=== PATIENT | female | born 1995 | race Caucasian/White ===

== ENCOUNTER 2016-12-24 21:12 | Emergency (ER) | payer BC ==
[2016-12-24] MEDS ORDERED: KETOROLAC 30 MG/ML 1 ML VIAL IVP STA (22:32)
[2016-12-24] MEDS ORDERED: SODIUM CHLORIDE 0.9% 1,000 ML IV ONE (22:32)
--- NOTE | 2016-12-24 22:38 | ED ---
Abdominal Pain HPI - General Chief Complaint: Abdominal Pain Stated Complaint: Ovarian Pain Source: patient Mode of arrival: ambulatory Limitations: no limitations - History of Present Illness Initial Comments: Patient is a 21-year-old female resents for evaluation for left lower quadrant abdominal pain. Past medical history as below. Patient has a known history of recurrent ovarian cyst. States that the pain started roughly 7 days ago. Nothing makes the pain better. She is tried Motrin with no relief. Serum positions seem to make it worse. It fluctuates in intensity. The pain as a pressure-like characteristic. No history of kidney stones in the past. Father gets kidney stones though. Denies any vaginal bleeding or vaginal discharge. Denies any other associated symptoms including fever, chills, headache and changes in vision, URI symptoms, shortness breath, cough, chest pain, nausea or vomiting, diarrhea, pain or burning with urination. - Related Data Previous Rx's Medication Instructions Recorded Naproxen 500 mg PO BID #14 tablet 12/25/16 Allergies Allergy/AdvReac Type Severity Reaction Status Date / Time No Known Allergies Allergy Verified 12/24/16 22:19 Review of Systems ROS Statement: Those systems with pertinent positive or pertinent negative responses have been documented in the HPI. ROS Other: All systems not noted in ROS Statement are negative. Past Medical History Past Medical History: No Reported History History of Any Multi-Drug Resistant Organisms: None Reported Past Surgical History: No Surgical Hx Reported Past Psychological History: No Psychological Hx Reported Smoking Status: Never smoker Past Alcohol Use History: Occasional Past Drug Use History: None Reported General Exam Limitations: no limitations General appearance: alert, in no apparent distress, other (Nontoxic appearing) Head exam: Present: atraumatic, normocephalic, normal inspection Eye exam: Present: normal appearance, PERRL, EOMI. Absent: scleral icterus, conjunctival injection, periorbital swelling ENT exam: Present: normal exam, mucous membranes moist Neck exam: Present: normal inspection. Absent: tenderness, meningismus, lymphadenopathy Respiratory exam: Present: normal lung sounds bilaterally. Absent: respiratory distress, wheezes, rales, rhonchi, stridor Cardiovascular Exam: Present: regular rate, normal rhythm, normal heart sounds. Absent: systolic murmur, diastolic murmur, rubs, gallop, clicks GI/Abdominal exam: Present: soft, tenderness, normal bowel sounds, other (Point tenderness in the lower pelvic area. Soft. No peritoneal signs. Negative Feldman sign. Negative McBurney sign. No rebound tenderness.). Absent: distended, guarding, rebound, rigid Extremities exam: Present: normal inspection, full ROM, normal capillary refill. Absent: tenderness, pedal edema, joint swelling, calf tenderness Back exam: Present: normal inspection Neurological exam: Present: alert, oriented X3, CN II-XII intact Psychiatric exam: Present: normal affect, normal mood Skin exam: Present: warm, dry, intact, normal color. Absent: rash Course Vital Signs 12/24/16 12/25/16 21:32 01:05 Temperature 99.5 F 97.9 F Pulse Rate 71 69 Respiratory 18 16 Rate Blood Pressure 123/62 108/60 O2 Sat by Pulse 99 99 Oximetry Medical Decision Making - Medical Decision Making Patient is a 20-year-old female resents for evaluation for left lower pelvic pain. We'll order ultrasound of the pelvis. Basic labs. Toradol. IV fluids. 2315: Laboratory studies as below. Largely unremarkable. Not . Awaiting ultrasound findings. -Ultrasound revealed a small 1.5 cm cyst in the left ovary. No other acute process. Laboratory studies are within normal limits and her ultrasound findings aren't significant. I discussed with the patient. Reevaluated. She is in no acute distress. Vital signs are stable. Abdomen is soft and non- peritoneal. 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 We' ll discharge home with naproxen. Encouraged not to take any other NSAIDs or Motrin. We'll give a dose of morphine prior to discharge. Discussed signs and symptoms on when to return to the emergency department for further evaluation. She is comfortable with discharge home and will follow-up. - Lab Data Result diagrams: 12/24/16 22:45 12/24/16 22:45 Lab Results 12/24/16 12/24/16 12/24/16 Range/Units 22:45 22:45 22:45 WBC 11.5 H (3.8-10.6) k/uL RBC 4.74 (3.80-5.40) m/uL Hgb 13.9 (11.4-16.0) gm/dL Hct 40.8 (34.0-46.0) % MCV 86.2 (80.0-100.0) fL MCH 29.4 (25.0-35.0) pg MCHC 34.1 (31.0-37.0) g/dL RDW 13.0 (11.5-15.5) % Plt Count 310 (150-450) k/uL Neutrophils % 45 % Lymphocytes % 40 % Monocytes % 7 % Eosinophils % 4 % Basophils % 1 % Neutrophils # 5.2 (1.3-7.7) k/uL Lymphocytes # 4.6 (1.0-4.8) k/uL Monocytes # 0.8 (0-1.0) k/uL Eosinophils # 0.4 (0-0.7) k/uL Basophils # 0.1 (0-0.2) k/uL Sodium (137-145) mmol/L Potassium (3.5-5.1) mmol/L Chloride (98-107) mmol/L Carbon Dioxide (22-30) mmol/L Anion Gap mmol/L BUN (7-17) mg/dL Creatinine (0.52-1.04) mg/dL Est GFR (MDRD) Af Amer (>60 ml/min/1.73 sqM) Est GFR (MDRD) Non-Af (>60 ml/min/1.73 sqM) Glucose (74-99) mg/dL Calcium (8.4-10.2) mg/dL Total Bilirubin (0.2-1.3) mg/dL AST (14-36) U/L ALT (9-52) U/L Alkaline Phosphatase (38-126) U/L Total Protein (6.3-8.2) g/dL Albumin (3.5-5.0) g/dL Urine Color Colorless Urine Appearance Clear (Clear) Urine pH 6.5 (5.0-8.0) Ur Specific Wallace 1.003 (1.001-1.035) Urine Protein Negative (Negative) Urine Glucose (UA) Negative (Negative) Urine Ketones Negative (Negative) Urine Blood Negative (Negative) Urine Nitrite Negative (Negative) Urine Bilirubin Negative (Negative) Urine Urobilinogen <2.0 (<2.0) mg/dL Ur Leukocyte Esterase Trace H (Negative) Urine RBC <1 (0-5) /hpf Urine WBC 1 (0-5) /hpf Ur Squamous Epith Cells <1 (0-4) /hpf Urine Bacteria Moderate H (None) /hpf Urine HCG, Qual Not Detected (Not Detectd) 12/24/16 Range/Units 22:45 WBC (3.8-10.6) k/uL RBC (3.80-5.40) m/uL Hgb (11.4-16.0) gm/dL Hct (34.0-46.0) % MCV (80.0-100.0) fL MCH (25.0-35.0) pg MCHC (31.0-37.0) g/dL RDW (11.5-15.5) % Plt Count (150-450) k/uL Neutrophils % % Lymphocytes % % Monocytes % % Eosinophils % % Basophils % % Neutrophils # (1.3-7.7) k/uL Lymphocytes # (1.0-4.8) k/uL Monocytes # (0-1.0) k/uL Eosinophils # (0-0.7) k/uL Basophils # (0-0.2) k/uL Sodium 140 (137-145) mmol/L Potassium 4.2 (3.5-5.1) mmol/L Chloride 104 (98-107) mmol/L Carbon Dioxide 27 (22-30) mmol/L Anion Gap 9 mmol/L BUN 11 (7-17) mg/dL Creatinine 0.73 (0.52-1.04) mg/dL Est GFR (MDRD) Af Amer >60 (>60 ml/min/1.73 sqM) Est GFR (MDRD) Non-Af >60 (>60 ml/min/1.73 sqM) Glucose 80 (74-99) mg/dL Calcium 9.9 (8.4-10.2) mg/dL Total Bilirubin 0.3 (0.2-1.3) mg/dL AST 23 (14-36) U/L ALT 28 (9-52) U/L Alkaline Phosphatase 59 (38-126) U/L Total Protein 7.4 (6.3-8.2) g/dL Albumin 4.8 (3.5-5.0) g/dL Urine Color Urine Appearance (Clear) Urine pH (5.0-8.0) Ur Specific Wallace (1.001-1.035) Urine Protein (Negative) Urine Glucose (UA) (Negative) Urine Ketones (Negative) Urine Blood (Negative) Urine Nitrite (Negative) Urine Bilirubin (Negative) Urine Urobilinogen (<2.0) mg/dL Ur Leukocyte Esterase (Negative) Urine RBC (0-5) /hpf Urine WBC (0-5) /hpf Ur Squamous Epith Cells (0-4) /hpf Urine Bacteria (None) /hpf Urine HCG, Qual (Not Detectd) Disposition Clinical Impression: Ovarian cyst Disposition: HOME SELF-CARE Condition: Good Instructions: Ovarian Cyst (ED) Prescriptions: Naproxen 500 mg PO BID #14 tablet Referrals: Suman Clay MD [Primary Care Provider] - 1-2 days
[2016-12-24 22:59] LABS: Basophils # (A) 0.1 k/uL (0-0.2); Basophils % (A) 1 %; CH 29.1; CHCM 33.9; Eosinophils # (A) 0.4 k/uL (0-0.7); Eosinophils % (A) 4 %; HCT 40.8 % (34.0-46.0); HDW 2.47; HGB 13.9 gm/dL (11.4-16.0); Luc # (Auto) 0.44; Luc % (Auto) 4; Lymphocytes # (A) 4.6 k/uL (1.0-4.8); Lymphocytes % (A) 40 %; MCH 29.4 pg (25.0-35.0); MCHC 34.1 g/dL (31.0-37.0); MCV 86.2 fL (80.0-100.0); Mean Platelet Volume 6.9; Monocytes # (A) 0.8 k/uL (0-1.0); Monocytes % (A) 7 %; Neutrophils # (A) 5.2 k/uL (1.3-7.7); Neutrophils % (A) 45 %; RBC 4.74 m/uL (3.80-5.40); WBC 11.5 k/uL (3.8-10.6); WBC (Perox) 11.31
[2016-12-24 23:09] LABS: ALT 28 U/L (9-52); AST 23 U/L (14-36); Alkaline Phosphatase 59 U/L (38-126); Anion Gap 9 mmol/L; Appearance,Urine Clear (Clear); Bacteria,Urine Moderate /hpf; Bilirubin,Urine Negative (Negative); Blood Urea Nitrogen 11 mg/dL (7-17); Calcium 9.9 mg/dL (8.4-10.2); Carbon Dioxide 27 mmol/L (22-30); Chloride 104 mmol/L (98-107); Glucose 80 mg/dL (74-99); Glucose,Urine (UA) Negative (Negative); Ketones,Urine Negative (Negative); Leukocyte Esterase,Urine Trace (Negative); Nitrite,Urine Negative (Negative); Non-African American GFR(MDRD) >60 (>60 ml/min/1.73 sqM); PH, Urine 6.5 (5.0-8.0); Particle Count 2062; Potassium 4.2 mmol/L (3.5-5.1); Protein,Urine Negative (Negative); RBC,Urine <1 /hpf (0-5); Sodium 140 mmol/L (137-145); Specific Gravity,Urine 1.003 (1.001-1.035); Squamous Epithelial Cell,Urine <1 /hpf (0-4); Total Bilirubin 0.3 mg/dL (0.2-1.3); Total Protein 7.4 g/dL (6.3-8.2); UA Billing (MACRO vs. MICRO) MICRO; Urobilinogen,Urine <2.0 mg/dL (<2.0); WBC,Urine 1 /hpf (0-5)
--- NOTE | 2016-12-25 00:03 | US ---
EXAM: US Pelvis, Transvaginal CLINICAL HISTORY: Reason: Pain TECHNIQUE: Real-time transvaginal pelvic ultrasound (complete) with image documentation. Transvaginal imaging was used for better evaluation of the endometrium and adnexa. COMPARISON: 07/07/15 pelvic ultrasound. FINDINGS: Note, endovaginal imaging only. Uterus/cervix: Uterus measures 7.5 x 4.5 x 3.6 cm and is within normal limits. The endometrial stripe is uniform in appearance, measuring just under 9 mm. No myometrial mass. Right ovary: Right ovary measures 3.5 x 2.5 x 2.3 cm and contains small follicles. No evidence of torsion seen. Left ovary: Left ovary measures 3.6 by 3.6 x 2.7 cm, containing a simple appearing dominant 1.5 cm cyst or dominant follicle with other smaller follicles. No evidence of torsion seen. Free fluid: Trace free fluid in the cul-de-sac and right adnexa, nonspecific, although is within physiologic normal limits. Bladder: Empty bladder which cannot be evaluated with this probe. IMPRESSION: Pelvic ultrasound findings are within physiologic normal limits, as above.
[2016-12-25] MEDS ORDERED: MORPHINE SULFATE 4 MG/ML SYRINGE IVP STA (00:46)
[2016-12-25 01:09] VITALS: BP 108/60; PULSE 69; RESP 16; TEMP 97.9
== END 2016-12-25 01:05 | disposition home or self-care (01) ==
LOC: EC 21:12
DX: N83.202 Unspecified ovarian cyst, left side (principal)
CPT/HCPCS: 99284; 96374; 96375; 96361 ×2; 36415; 80053; 85025; 81001; 81025; 93975; 76830; J2270; J1885

== ENCOUNTER 2017-10-23 22:02 | Emergency (ER) | payer BC ==
[2017-10-23 22:20] VITALS: PULSE 69
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
[2017-10-23 22:59] LABS: Basophils % (A) 0 %; Eosinophils # (A) 0.5 k/uL (0-0.7); Eosinophils % (A) 5 %; HGB 13.4 gm/dL (11.4-16.0); Lymphocytes # (A) 2.8 k/uL (1.0-4.8); Lymphocytes % (A) 32 %; MCH 28.4 pg (25.0-35.0); MCHC 33.4 g/dL (31.0-37.0); MCV 85.1 fL (80.0-100.0); Monocytes # (A) 0.7 k/uL (0-1.0); Monocytes % (A) 8 %; Neutrophils # (A) 4.6 k/uL (1.3-7.7); Neutrophils % (A) 52 %; Platelet Count 277 k/uL (150-450); RDW 13.4 % (11.5-15.5); WBC 8.8 k/uL (3.8-10.6)
[2017-10-23 23:01] LABS: Appearance,Urine Cloudy (Clear); Bacteria,Urine Rare /hpf; Bilirubin,Urine Negative (Negative); Blood,Urine Negative (Negative); Color,Urine Yellow; Glucose,Urine (UA) Negative (Negative); Ketones,Urine Negative (Negative); Leukocyte Esterase,Urine Moderate (Negative); Mucus,Urine Moderate /hpf; Nitrite,Urine Negative (Negative); PH, Urine 5.5 (5.0-8.0); Protein,Urine Trace (Negative); RBC,Urine 3 /hpf (0-5); Squamous Epithelial Cell,Urine 15 /hpf (0-4); Urobilinogen,Urine <2.0 mg/dL (<2.0); WBC,Urine 10 /hpf (0-5)
[2017-10-23 23:08] LABS: ALT 29 U/L (9-52); AST 26 U/L (14-36); Albumin 4.5 g/dL (3.5-5.0); Alkaline Phosphatase 56 U/L (38-126); Anion Gap 14 mmol/L; Blood Urea Nitrogen 10 mg/dL (7-17); Calcium 9.9 mg/dL (8.4-10.2); Carbon Dioxide 27 mmol/L (22-30); Chloride 102 mmol/L (98-107); Creatine Kinase 94 U/L (30-135); Glucose 84 mg/dL (74-99); Potassium 3.9 mmol/L (3.5-5.1); Sodium 143 mmol/L (137-145); Total Bilirubin 0.3 mg/dL (0.2-1.3); Total Protein 6.9 g/dL (6.3-8.2)
[2017-10-23 23:09] LABS: Partial Thromboplastin Time 24.1 sec (22.0-30.0); Prothrombin Time 9.8 sec (9.0-12.0)
[2017-10-23 23:15] LABS: Creatine Kinase 98 U/L (30-135)
[2017-10-23 23:29] LABS: Creatine Kinase MB 0.7 ng/mL (0.0-2.4); Troponin I <0.012 ng/mL (0.000-0.034)
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
[2017-10-24 00:20] VITALS: BP 111/66; RESP 16; TEMP 97.7
== END 2017-10-24 00:10 | disposition home or self-care (01) ==
LOC: EC 22:02
DX: T75.4XXA Electrocution, initial encounter (principal); S00.83XA Contusion of other part of head, initial encounter; Z79.84 Long term (current) use of oral hypoglycemic drugs; W01.198A Fall on same level from slipping, tripping and stumbling with subsequent striking against other object, initial encounter; Y92.002 Bathroom of unspecified non-institutional (private) residence as the place of occurrence of the external cause; Y93.E1 Activity, personal bathing and showering
CPT/HCPCS: 36415; 70450; 80053; 81001; 82550; 82553; 84484; 85025; 85610; 85730; 93005; 99284

== ENCOUNTER 2018-08-27 15:53 | Outpatient (CLI) | payer BC ==
[2018-08-27 17:12] VITALS: BP 135/74; PULSE 77; RESP 14; TEMP 98.1
--- NOTE | 2018-09-03 08:08 | P.MSEPDOC ---
Presenting Problems - Arrival Data Date of Arrival on Unit: 08/27/18 Time of Arrival on Unit: 15:52 Mode of Transport: Ambulatory - Complaint OB-Reason for Admission/Chief Complaint: Rule Out SROM Comment: pt reports fluid at 1430 this afternoon Medical History - Information : 1 Para: 0 Term: 0 : 0 Abortions: Spontaneous or Elective: 0 Number of Living Children: 0 - Gestational Age Gestational Age by GUNNAR (wks/days): -65 Weeks and -4 Days Review of Systems - Review of Systems Constitutional: No problems Breast: No problems ENT: No problems Cardiovascular: No problems Respiratory: No problems Gastrointestinal: No problems Genitourinary: No problems Musculoskeletal: No problems Neurological: No problems Skin: No problems Vital Signs - Temperature Temperature: 98.1 F Temperature Source: Oral - Pulse Right Brachial Pulse Rate: 77 Pulse Assessment Method: Automatic Cuff - Respirations Respiratory Rate: 14 Oxygen Delivery Method: Room Air - Blood Pressure Right Arm Blood Pressure: 135/74 Blood Pressure Mean: 94 Blood Pressure Source: Automatic Cuff Medical Screen Scoring (Pre) - Cervical Exam Dilation: 1-3 cm = 1 - Uterine Contractions Frequency: > 5 minutes apart = 1 Duration: > 40 seconds = 2 Intensity: N/A - Maternal Vital Signs Maternal Temperature: N/A Maternal Blood Pressure: N/A Signs of Preeclampsia: N/A Maternal Respirations: N/A - Pain Assessment Pain Location and Character: Pelvic Pain Scale Used: Numeric (1 - 10) Pain Intensity: 5 Pain Management Goal: 6 Pain Frequency: Frequent Pain Duration Units: Minutes Pain Behavior: None Exhibited Pain Aggravating Factors: Contractions - Assessment Baseline FHR: 125 Heart Rate - NICHD Category: Category I (Normal) = 0 NST: Reactive Position: N/A - Total Score Total Score (Pre): 4 - Level of Risk Level of Risk: Low (0-5) Physician Notification (Pre) - Physician Notified Physician Notified Date: 08/27/18 Physician Notified Time: 16:35 Physician/Practitioner Notifed:: corbin Spoke With: corbin New Order Received: Yes - Notification Comment Comment: reported to dr alaniz pt visit to triage with concern of rom. reported amnisure negative, reactive nst, irregular contractions, vag exam of 3.5/70. orders to discharge pt home with follow up at scheduled appointment next week Disposition - Disposition OB Disposition: Physician follow up in office, Discharge to home Discharge Date: 08/27/18 Discharge Time: 16:35 I agree with the RN Medical Screening Exam: No Physician's MSE Comment: Pt is 39 1/7 weeks gestation Risk & Benefit of care provided described in d/c instruction: Yes Diagnosis: FALSE LABOR AT OR AFTER 37 COMPLETED WEEKS OF GESTATION
== END 2018-08-27 16:35 | disposition home or self-care (01) ==
LOC: FBPOP 15:53
PROVIDERS: ATTEND Obstetrics & Gynecology
DX: O47.1 False labor at or after 37 completed weeks of gestation (principal); Z3A.39 39 weeks gestation of pregnancy
CPT/HCPCS: 59025; 99213

== ENCOUNTER → 2020-07-29 | Outpatient (CLI) | payer BC | END | disposition home or self-care (01) | LOC: LABWHC1 09:06 | PROVIDERS: ATTEND Obstetrics & Gynecology | DX: N92.5 Other specified irregular menstruation (principal) | CPT/HCPCS: 36415; 84702 ==

== ENCOUNTER 2021-03-13 09:10 | Outpatient (CLI) | payer BC ==
[2021-03-13] MEDS ORDERED: BETAMET ACET-BETAMETH SOD PHOS 6 MG/ML MDV IM SCH (09:45)
[2021-03-13 10:05] VITALS: BP 134/81; PULSE 95; RESP 18; TEMP 98.4
== END 2021-03-13 09:55 | disposition home or self-care (01) ==
LOC: FBPOP 09:10
PROVIDERS: ATTEND Obstetrics & Gynecology
DX: O36.8330 Maternal care for abnormalities of the fetal heart rate or rhythm, third trimester, not applicable or unspecified (principal); O30.93 Multiple gestation, unspecified, third trimester; Z3A.35 35 weeks gestation of pregnancy
CPT/HCPCS: 59025; 96372; J0702; 99214

== ENCOUNTER 2021-03-14 08:20 | Outpatient (CLI) | payer BC ==
[2021-03-14] MEDS ORDERED: BETAMET ACET-BETAMETH SOD PHOS 6 MG/ML MDV IM SCH (09:00)
== END 2021-03-14 08:40 ==
LOC: FBPOP 08:20
PROVIDERS: ATTEND Obstetrics & Gynecology
DX: O26.893 Other specified pregnancy related conditions, third trimester (principal); Z3A.35 35 weeks gestation of pregnancy

== ENCOUNTER 2021-03-15 10:42 | Inpatient (IN) | payer BC ==
[2021-03-15] MEDS ORDERED: LACTATED RINGERS 1,000 ML IV ONE (11:07)
[2021-03-15] MEDS ORDERED: CITRIC ACID-SODIUM CITRATE 15 ML CUP PO ONE (11:07)
[2021-03-15 11:17] LABS: Basophils % (A) 0 %; Eosinophils % (A) 0 %; HCT 34.3 % (34.0-46.0); HGB 11.2 gm/dL (11.4-16.0); Lymphocytes # (A) 2.2 k/uL (1.0-4.8); Lymphocytes % (A) 15 %; MCH 28.4 pg (25.0-35.0); MCHC 32.7 g/dL (31.0-37.0); MCV 87.1 fL (80.0-100.0); Mean Platelet Volume 8.9; Monocytes # (A) 0.9 k/uL (0-1.0); Monocytes % (A) 6 %; Neutrophils # (A) 11.2 k/uL (1.3-7.7); Neutrophils % (A) 75 %; Platelet Count 261 k/uL (150-450); RBC 3.94 m/uL (3.80-5.40); RDW 13.4 % (11.5-15.5); WBC 14.8 k/uL (3.8-10.6)
--- NOTE | 2021-03-15 12:32 | P.HPOB ---
History of Present Illness H&P Date: 03/15/21 This is a 25-year-old white female 2 para 1001 EDC 04/12/2021 at 36 weeks' gestation who presents with a known monochorionic, diamniotic twin gestation. Maternal medicine recommendation has been for delivery between 36 and 37 weeks. testing has been reassuring, however in the office today baseline on baby A was 108, with accelerations. Baseline baby B 1 teens, with accelerations. Normal amniotic fluid index. Antibiotics have been received. Decision is therefore this morning to proceed with the section. Patient declines the option of vaginal although she has had a vaginal in the past. Fetuses are both active. Past medical history is significant for PCO OS. Past surgical history wisdom teeth extracted in the past. ALLERGIES none known. Current medications vitamin daily, baby aspirin daily, metformin 500 mg twice daily. Family history significant for pancreatic cancer, hypertension. Social history patient is , her and is present. She denies alcohol tobacco or drug use. No fainting. history significant for blood type A positive, rubella status immune. VDRL testing, hepatitis B surface antigen, HIV testing, group B strep cultures all negative. One-hour Glucola 119. Gonorrhea and chlamydia cultures negative. On exam patient is 5 foot 3 inches, 200 pounds, blood pressure 129/83. The general physical exam is within normal limits. Chest is clear in all smith. Extremities reveal trace edema. Fundus is gravid, fundal height 44 cm. heart rates are both reactive, baseline in the 1 teens for both twins. Impression: 36 week monochorionic diamniotic twins, steroids received, b radycardia on both twins as a baseline, patient declining vaginal option. Patient had a half banana and several sips of chocolate milk at 9 AM. Plan: We will await 6 hours of nothing by mouth status, then proceed with low transverse section. Antibiotic prophylaxis. All risks benefits and alternatives discussed with patient. All questions answered. Commissioning Editor in- house and aware. Review of Systems as per HPI Constitutional: Reports as per HPI Respiratory: Reports as per HPI Past Medical History Past Medical History: No Reported History Additional Past Medical History / Comment(s): PCOS History of Any Multi-Drug Resistant Organisms: None Reported Past Surgical History: No Surgical Hx Reported Past Anesthesia/Blood Transfusion Reactions: No Reported Reaction Past Psychological History: No Psychological Hx Reported Smoking Status: Never smoker Past Alcohol Use History: Occasional Past Drug Use History: None Reported - Past Family History Father Family Medical History: Cancer Medications and Allergies Home Medications Medication Instructions Recorded Confirmed Type metFORMIN HCL [Glucophage] 500 mg PO BID 10/23/17 03/15/21 History Aspirin 81 mg PO DAILY 03/13/21 03/15/21 History Pnv,Calcium 72/Iron/Folic Acid 1 each PO DAILY 03/13/21 03/15/21 History [ Plus Tablet] Allergies Allergy/AdvReac Type Severity Reaction Status Date / Time No Known Allergies Allergy Verified 03/15/21 10:58 Exam Vital Signs Temp Pulse Resp BP Pulse Ox 03/15/21 10:59 97.9 F 90 16 129/83 97 Intake and Output 03/14/21 03/15/21 03/15/21 22:59 06:59 14:59 Other: Weight 90.718 kg as per HPI Results Result Diagrams: 03/15/21 11:00 Abnormal Lab Results - Last 24 Hours (Table) 03/15/21 Range/Units 11:00 WBC 14.8 H (3.8-10.6) k/uL Hgb 11.2 L (11.4-16.0) gm/dL Neutrophils # 11.2 H (1.3-7.7) k/uL Assessment and Plan Assessment: 36 wks monochorionic, diamniotic twins with bradycardic baseline on both twins, normal SPRING and R-NSTx2, steroids received. Because recommendation from maternal- medicine is delivered between 36 and 37 weeks, we will proceed with section this afternoon. Plan: 086 hours of nothing by mouth status per anesthesia recommendations, then section. All risks benefits and alternatives reviewed in detail. All questions answered. Time with Patient: Less than 30
[2021-03-15] MEDS ORDERED: OXYTOCIN 30 UNITS/500 ML NS BAG IV ONE (16:01)
[2021-03-15] MEDS ORDERED: KETOROLAC 15 MG/ML 1 ML VIAL ONE (16:01)
[2021-03-15] MEDS ORDERED: ONDANSETRON 4 MG/2 ML VIAL ONE (16:01)
[2021-03-15] MEDS ORDERED: MORPHINE SULFATE (PF) 0.3 MG/0.3 ML SYR ONE (16:01)
[2021-03-15] MEDS: LACTATED RINGERS 1,000 ML IV SCH ×3 (16:54→21:04)
[2021-03-15] MEDS ORDERED: diphenhydrAMINE 50 MG/ML 1 ML VIAL IVP PRN ×2 (17:00)
[2021-03-15] MEDS ORDERED: diphenhydrAMINE 50 MG CAP PO PRN (17:00)
[2021-03-15] MEDS ORDERED: diphenhydrAMINE 25 MG CAP PO PRN (17:00)
[2021-03-15] MEDS ORDERED: NALOXONE 0.4 MG/ML 1 ML VIAL IV PRN ×2 (17:00→17:19)
[2021-03-15] MEDS ORDERED: METOCLOPRAMIDE 5 MG/ML 2 ML VIAL IVP PRN (17:00)
[2021-03-15] MEDS ORDERED: ZOLPIDEM 5 MG TAB PO PRN (17:00)
[2021-03-15] MEDS ORDERED: ONDANSETRON 4 MG/2 ML VIAL IVP PRN (17:00)
--- NOTE | 2021-03-15 17:00 | P.OP ---
Date of Procedure: 03/15/21 Preoperative Diagnosis: Monochorionic, diamniotic twins at 36 weeks gestation. bradycardia baby B Postoperative Diagnosis: Same, liveborn female twins. Procedure(s) Performed: Primary low transverse section Anesthesia: spinal Surgeon: Greta Kenney [facility]: Nuha Silver Estimated Blood Loss (ml): 400 IV fluids (ml): 1,000 Urine output (ml): 200 Pathology: other (Placenta) Condition: stable Disposition: PACU Operative Findings: Baby A 5 lbs. 12 oz., 2600 g, scores 6, 8, 9 at one and 5 and 10 minutes. Baby B 5 lbs. 4 oz., 2380 g, scores 7, 9, 10 at one and 5 and 10 minutes Description of Procedure: Patient is brought to the operating suite where a spinal with Duramorph is administered without difficulty. She's placed in the dorsal supine position with left lateral uterine displacement. The appropriate timeout is performed to assure proper patient and procedural identification. Antibiotics are given. Bicitra given. Stevenson to direct drainage. The abdomen is prepped and draped in the usual sterile fashion. Analgesia is checked and noted to be working well. A low transverse skin incision is made in this is carried down through the subcutaneous tissue to the fascia. The fascia is isolated, scored, extended bilaterally with curved Maddox scissors. Peritoneum is next identified and incised, there is no bowel or bladder involvement. Bladder blade is placed over the dome of the bladder and at all times the bladder is Well from the operative field to avoid bladder and/or ureteral injury. A low transverse uterine incision is made in this is carried down through the myometrium. Artificial amniorrhexis of "A" reveals clear fluid. Baby A is delivered in the occiput posterior position. The umbilical cord is doubly clamped and ligated, she is handed to waiting nurses for evaluation as well as our shipping packer, where scores of 68 and 9 at one and 5 and 10 minutes respectively are given. The umbilical cord is marked. Artificial amniorrhexis of baby B reveals clear fluid. Infant is delivered in the vertex presentation. Umbilical cord is doubly clamped and ligated, she is handed to waiting shipping packer for evaluation where scores of 7 and 9 and 10 at one and 5 and 10 minutes respectively are given. Placentas are delivered spontaneously, sent to pathology for evaluation. The uterus is then massaged. It is swept clean with a sterile sponge to avoid any retained products of conception. Ovaries and tubes appear normal. The uterus is closed in a two-step fashion, first layer running locking with 0 Vicryl, second layer imbricated the same. Excellent hemostasis and reapproximation is noted. Bilateral gutters are inspected and cleaned. Uterus is suctioned posteriorly. Again incision is inspected of the uterus and noted to be clean and dry. Peritoneum was allowed to close by secondary intention. Fascia is closed in a running stitch of 0 Vicryl with over ligation in the midline. Subcutaneous tissue is irrigated, clean and dry. It is reapproximated with 3-0 Vicryl in a running stitch. 4-0 Vicryl issues for final skin closure in a subcuticular manner. Steri-Strips and Mastisol are applied to the wound. Uterus is massaged, small amount of lochia is obtained. Total estimated blood loss 400 mL's. All sponge needle and enhancement counts are correct. Stevenson is noted to be draining clear urine. Patient is brought back to the recovery room in excellent condition with a blood pressure 118/54, pulse 65, 100% O2 saturation. As noted, baby A weighs 5 lbs. 12 oz. or 2600 g, baby B weighs 5 lbs. 4 oz. or 2380 g.
[2021-03-15] MEDS ORDERED: MORPHINE SULFATE 2 MG/ML SYRINGE IVP PRN (17:19)
[2021-03-15] MEDS: ACETAMINOPHEN TAB 500 MG TAB PO SCH (18:41)
[2021-03-15] MEDS: SENNOSIDES-DOCUSATE SODIUM 1 EACH TAB PO SCH (21:04)
[2021-03-15] MEDS: KETOROLAC 15 MG/ML 1 ML VIAL IVP SCH (22:20)
[2021-03-15] MEDS ORDERED: KETOROLAC 15 MG/ML 1 ML VIAL IM SCH (22:30)
[2021-03-16] MEDS: LACTATED RINGERS 1,000 ML IV SCH ×2 (00:19→19:43)
[2021-03-16] MEDS: ACETAMINOPHEN TAB 500 MG TAB PO SCH ×4 (00:34→23:03)
[2021-03-16] MEDS: IBUPROFEN 600 MG TAB PO SCH ×5 (01:04→19:48)
[2021-03-16] MEDS: KETOROLAC 15 MG/ML 1 ML VIAL IVP SCH ×4 (01:04→18:48)
[2021-03-16 06:24] LABS: Basophils % (A) 0 %; Eosinophils # (A) 0.1 k/uL (0-0.7); Eosinophils % (A) 0 %; HCT 32.1 % (34.0-46.0); HGB 10.6 gm/dL (11.4-16.0); Lymphocytes # (A) 2.2 k/uL (1.0-4.8); Lymphocytes % (A) 13 %; MCH 29.4 pg (25.0-35.0); MCV 89.2 fL (80.0-100.0); Mean Platelet Volume 8.7; Monocytes # (A) 1.4 k/uL (0-1.0); Monocytes % (A) 8 %; Neutrophils # (A) 13.5 k/uL (1.3-7.7); Neutrophils % (A) 77 %; Platelet Count 245 k/uL (150-450); RBC 3.59 m/uL (3.80-5.40); RDW 13.4 % (11.5-15.5); WBC 17.7 k/uL (3.8-10.6)
[2021-03-16] MEDS: SENNOSIDES-DOCUSATE SODIUM 1 EACH TAB PO SCH ×2 (07:34→19:52)
--- NOTE | 2021-03-16 07:57 | P.PN ---
Subjective Progress Note Date: 03/16/21 Principal diagnosis: Doing well first postoperative day Slept well. Minimal pain. No complaints. Objective - Vital Signs Vital signs: Vital Signs Temp 97.7 F 03/16/21 07:38 Pulse 60 03/16/21 07:38 Resp 17 03/16/21 07:38 BP 102/58 03/16/21 07:38 Pulse Ox 100 03/16/21 07:38 Intake & Output 03/15/21 03/16/21 03/16/21 18:59 06:59 18:59 Output Total 900 350 Balance -900 -350 Weight 90.718 kg Output: Urine 500 350 Uretheral (Stevenson) 200 Estimated Blood Loss 400 Other: Voiding Method Indwelling Catheter Indwelling Catheter - Constitutional General appearance: Present: average body habitus, cooperative - EENT Eyes: Present: PERRLA ENT: Present: hearing grossly normal - Neck Neck: Present: normal ROM - Respiratory Respiratory: bilateral: CTA - Cardiovascular Rhythm: regular - Gastrointestinal General gastrointestinal: Present: normal bowel sounds - Integumentary Integumentary: Present: normal - Neurologic Neurologic: Present: CNII-XII intact - Musculoskeletal Musculoskeletal: Present: gait normal, strength equal bilaterally - Psychiatric Psychiatric: Present: A&O x's 3, appropriate affect, intact judgment & insight - Labs CBC & Chem 7: 03/16/21 05:25 Labs: Abnormal Lab Results - Last 24 Hours (Table) 03/15/21 03/16/21 Range/Units 11:00 05:25 WBC 14.8 H 17.7 H (3.8-10.6) k/uL RBC 3.59 L (3.80-5.40) m/uL Hgb 11.2 L 10.6 L (11.4-16.0) gm/dL Hct 32.1 L (34.0-46.0) % Neutrophils # 11.2 H 13.5 H (1.3-7.7) k/uL Monocytes # 1.4 H (0-1.0) k/uL Assessment and Plan Assessment: Doing well postoperative day #1. Both twins doing well. Plan: Advance diet and activity. May shower. Continue postoperative care. Time with Patient: Less than 30
[2021-03-16] MEDS: SIMETHICONE 80 MG CHEWABLE PO PRN ×3 (09:55→17:37)
--- NOTE | 2021-03-16 12:46 | P.PN ---
Progress Note - Text Date: 03/16/2021 Time:: 07:07 The patient is status post section Vital signs stable VAS:[0-10] Patient has no complaints of pain. The patient incurred some minimal itching yesterday, this itching is now subsiding. Pain meds to be managed by service.
[2021-03-17] MEDS: IBUPROFEN 600 MG TAB PO SCH ×2 (02:40→08:18)
[2021-03-17] MEDS: ACETAMINOPHEN TAB 500 MG TAB PO SCH ×2 (05:57→11:32)
--- NOTE | 2021-03-17 07:53 | P.DS ---
Providers Date of admission: 03/15/21 10:42 Expected date of discharge: 03/17/21 Attending physician: Greta Kenney Primary care physician: Stated None Hospital Course: This is a 25-year-old female 2 para 1001 EDC 04/12/2021 at 36 weeks' gestation who presented for section for monochorionic, diamniotic twins. Maternal- recommendation was for delivery between 36 and 37 weeks, testing revealed bradycardia baseline on the twins, steroids had been received. Please see my dictated history and physical for details. Patient underwent low transverse section giving to a liveborn twins, baby A weighed 5 lbs. 12 oz. or 2600 g and had scores of 68 and 9, baby B weighed 5 lbs. 4 oz. or 2380 g with scores of 79 and 10 at one and 5 and 10 minutes respectively. Total estimated blood loss 400 mL, please see my dictated operative note for details. This morning the patient and her baby's are all doing well. Abdominal incision is clean and dry, intact, Steri-Strips applied. Fundus is firm, midline, symmetric, 18-16 week size, extremities reveal no edema. Chest is clear. Patient is judged to be in very good condition for discharge home. Patient states pain is well tolerated on ibuprofen. She will follow-up with me in the office in 2 weeks for an incision check. She is reminded no intercourse, tampons or douching. She will use [id number] Advil or Aleve, or Motrin 600 mg every 6 hours as needed for pain, which may be alternated with Tylenol thousand milligrams every 6 hours. No heavy lifting, no driving for 2 weeks. Continue vitamin daily. Please call with any fevers shakes or chills, foul smelling or copious lochia, with any pain not alleviated by [id number] products, with any issues or concerns. Contraceptive options have been reviewed and we will discuss this further in the office. Health Concerns: Doing Well second postoperative day Patient Condition at Discharge: Good Plan - Discharge Summary Discharge Rx Participant: No New Discharge Prescriptions: No Action metFORMIN HCL [Glucophage] 500 mg PO BID Pnv,Calcium 72/Iron/Folic Acid [ Plus Tablet] 1 each PO DAILY Aspirin 81 mg PO DAILY Discharge Medication List metFORMIN HCL [Glucophage] 500 mg PO BID 10/23/17 [History] Aspirin 81 mg PO DAILY 03/13/21 [History] Pnv,Calcium 72/Iron/Folic Acid [ Plus Tablet] 1 each PO DAILY 03/13/21 [History] Follow up Appointment(s)/Referral(s): Greta Kenney MD [STAFF PHYSICIAN] - 2 Weeks Discharge Disposition: HOME SELF-CARE
[2021-03-17 08:49] VITALS: BP 112/71; PULSE 71; TEMP 98
[2021-03-17 13:25] VITALS: RESP 16
== END 2021-03-17 13:00 | disposition home or self-care (01) | DRG 788 ==
LOC: 4FBP 10:42
PROVIDERS: ADMIT Obstetrics & Gynecology; ATTEND Obstetrics & Gynecology
PROC: 10D00Z1 Extraction of Products of Conception, Low, Open Approach (ICD-10-PCS; principal; 2021-03-15 16:01)
DX: O30.003 Twin pregnancy, unspecified number of placenta and unspecified number of amniotic sacs, third trimester (principal); Z37.2 Twins, both liveborn; Z3A.37 37 weeks gestation of pregnancy; O76 Abnormality in fetal heart rate and rhythm complicating labor and delivery; Z79.82 Long term (current) use of aspirin; Z79.84 Long term (current) use of oral hypoglycemic drugs; Z80.0 Family history of malignant neoplasm of digestive organs; Z82.49 Family history of ischemic heart disease and other diseases of the circulatory system
CPT/HCPCS: 85025; 86850; 86900; 86901